=== PATIENT | female | born 1955 | race Caucasian/White ===

== ENCOUNTER 2016-08-10 12:59 | Emergency (ER) | payer OTHER ==
[~2016-08-10] VITALS: Ht 172.7 cm; Wt 79.7 kg
[2016-08-10 14:24] LABS: MCH 29.5 PG (29.0-34.0); MCHC 33.8 G/DL (30.0-36.0); MCV 87.5 FL (83-99); MEAN PLAT.VOLUME 10.9 uM^3 (9.5-12.4); PLATELET COUNT 240 K/uL (156-360); RBC DIS.WIDTH-CV 12.2 % (11.8-14.6); RBC DIS.WIDTH-SD 38.3 % (39-53); RED BLOOD COUNT 4.57 M/uL (3.80-5.20); WHITE BLOOD COUNT 8.4 K/uL (4.1-10.2)
[2016-08-10 14:34] LABS: CHLORIDE 100 mEq/L (99-109); POTASSIUM 4.2 mEq/L (3.7-5.4); SODIUM 137 mEq/L (136-147)
[2016-08-10 14:36] LABS: GLUCOSE 110 mg/dL (70-99)
[2016-08-10 14:37] LABS: ANION GAP 9 MEQ/L (2-14)
[2016-08-10 14:38] LABS: TOTAL BILIRUBIN 0.8 mg/dL (0.0-1.0)
[2016-08-10 14:39] LABS: ALKALINE PHOSPHATASE 87 IU/L (3-129)
[2016-08-10 14:40] LABS: GFR ESTIMATE (CALCULATED) > 59 mL/min/
[2016-08-10 14:41] LABS: UREA NITROGEN (BUN) 15 mg/dL (9-23)
[2016-08-10 14:43] LABS: LIPASE 12 U/L (1.0-51.0)
[2016-08-10] MEDS ORDERED: VENLAFAXINE HCL75 M3 PO (15:28)
[2016-08-10] MEDS ORDERED: BUPROPION XL300 MG PO (15:28)
[2016-08-10] MEDS ORDERED: LEVOTHYROXINE25 MCG PO (15:28)
[2016-08-10] MEDS ORDERED: PRAVACHOL20 MG PO (15:29)
[2016-08-10 16:20] LABS: ADD MIUA? NO; BILIRUBIN NEGATIVE; BLOOD NEGATIVE; COLOR YELLOW ((YELLOW)); GLUCOSE (STRIP) NEGATIVE; KETONES TRACE; LEUKOCYTES NEGATIVE; NITRITE NEGATIVE; PROTEIN (STRIP) NEGATIVE; SPECIFIC GRAVITY 1.015 (1.000-1.030); UROBILINOGEN 0.2 MG/DL (0.2-1.0)
[2016-08-10] MEDS ORDERED: ZOFRAN ODT4 MG PO (16:40)
[2016-08-10] MEDS ORDERED: BENTYL20 MG PO (16:40)
[2016-08-10 17:15] LABS: INFLUENZA A VIRAL ANTIGEN NEGATIVE; INFLUENZA B VIRAL ANTIGEN NEGATIVE
[2016-08-10 18:07] VITALS: BP 132/79
== END 2016-08-10 18:08 | disposition home or self-care (01) ==
LOC: EME → EDBD 12:59 → EME 18:08
PROVIDERS: Nurse Practitioner Family
DX: R10.9 Unspecified abdominal pain (principal); R11.2 Nausea with vomiting, unspecified; R19.7 Diarrhea, unspecified; R51 Headache
CPT/HCPCS: 74000; 80053; 81003; 83690; 85027; 87502; 99281; 99285; J1200; J1885; J2405; J7030